=== PATIENT | female | born 1960 ===

== ENCOUNTER → 2020-08-20 | Outpatient (CLI) | payer BC | END | disposition home or self-care (01) | LOC: PLD 12:25 → LAB SHORT 12:25 | DX: D22.22 Melanocytic nevi of left ear and external auricular canal (principal) | CPT/HCPCS: 88305 ==

== ENCOUNTER → 2021-09-25 | Outpatient (CLI) | payer BC | LOC: LAB SHORT 15:01 | DX: N39.0 Urinary tract infection, site not specified (principal) | CPT/HCPCS: 87086 ==